=== PATIENT | male | born 1985 | race Caucasian/White ===

== ENCOUNTER 2018-03-29 09:13 | Emergency (ER) | payer SELFPAY ==
[~2018-03-29] VITALS: Ht 177.8 cm; Wt 113.4 kg
[~2018-03-29 09:13] MED LIST: ALBU90OI INH; AMIT10 PO; Amitriptyline H10 MG PO; Cleocin HCl150 MG PO; Crutch1 EACH MISC; Norco 5-325 Ta1 EACH PO; VALS80; VALSARTAN-HCTZ1 EAC2 PO
[2018-03-29] MEDS ORDERED: BUDE10.22 (09:28)
[2018-03-29] MEDS ORDERED: Prednisone20 MG PO (10:58)
[2018-03-29] MEDS ORDERED: Ventolin Sy2 MG/5 ML PO (10:58)
[2018-03-29] MEDS ORDERED: BENZ100A PO (10:58)
== END 2018-03-29 11:11 | disposition home or self-care (01) ==
LOC: ER 09:13
DX: J45.901 Unspecified asthma with (acute) exacerbation (principal); J06.9 Acute upper respiratory infection, unspecified; I10 Essential (primary) hypertension; Z79.51 Long term (current) use of inhaled steroids
CPT/HCPCS: 71046; 94640; 99283-25

== ENCOUNTER 2018-07-15 12:02 | Observation (INO) | payer OTHER ==
[~2018-07-15] VITALS: Ht 177.8 cm; Wt 112.1 kg
[~2018-07-15 12:02] MED LIST changes: +BENZ100A PO; +BUDE10.22; +Prednisone20 MG PO; +Ventolin Sy2 MG/5 ML PO
[2018-07-15 12:52] LABS: Source, Urine Voided
[2018-07-15 12:56] LABS: Hematocrit 52.9 % (37.0-53.0); Hemoglobin 17.7 g/dL (13.5-17.5); Mean Corpuscular HGB 29.9 pg (26.0-34.0); Mean Corpuscular HGB Conc 33.5 g/dL (31.5-36.5); Mean Corpuscular Volume 90 fL (80-100); Mean Platelet Volume 9.9 fL (9.1-12.4); Platelet Count 284 K/mm3 (150-400); RDW Coefficient Variation 12.6 % (11.7-14.2); RDW Standard Deviation 41.6 fL (35.1-46.3); Red Blood Cell Count 5.91 M/mm3 (4.30-5.90); White Blood Cell Count 13.56 K/mm3 (4.00-11.30)
[2018-07-15 13:01] LABS: Appearance, Urine Clear (Clear); Bilirubin, Urine Neg (Neg); Blood, Urine Neg (Neg); Color, Urine Yellow (P-Yellow); Glucose Qualitative, Urine Neg (Neg); Ketones, Urine Neg (Neg); Leukocyte Esterase, Urine 1+ (Neg); Nitrite, Urine Neg (Neg); Protein, Urine 2+ (Neg); Urobilinogen, Urine NORM (Normal)
[2018-07-15 13:09] LABS: International Normalized Ratio 1.01; Prothrombin Time Results 10.4 Sec (9.7-11.5)
[2018-07-15 13:14] LABS: Bacteria Few /hpf; Mucus Heavy ({null, 0-Heavy}); Red Blood Cells, Urine Not Seen /hpf (0-2); Squamous Epithelial Cells Few /hpf (Few)
[2018-07-15 13:16] LABS: Alanine Aminotransfer (ALT/SGP 50 U/L (12-78); Albumin/Globulin Ratio 0.9 (0.8-1.8); Alk Phos 91 U/L (50-136); Anion Gap 10 mmol/L (6-16); Aspartate Aminotrans (AST/SGOT 18 U/L (12-37); Bilirubin, Total 1.2 mg/dL (0.1-1.0); Blood Urea Nitrogen 26 mg/dL (8-24); Bun/Creatinine Ratio 21.8 (12.0-20.0); CO2, Blood 20 mmol/L (21-32); Calcium, Blood 9.2 mg/dL (8.5-10.1); Chloride, Blood 104 mmol/L (98-108); Creatinine, Blood 1.19 mg/dL (0.60-1.20); Globulin, Blood 4.3 g/dL (2.2-4.0); Glomerular Filtration Rate >60 (60-); Glucose, Blood 137 mg/dL (70-99); Potassium, Blood 3.8 mmol/L (3.5-5.5); Sodium, Blood 134 mmol/L (136-145); Total Protein, Blood 8.3 g/dL (6.4-8.2)
[2018-07-15 13:24] LABS: BAND PERCENT MAN 3 % (0-8); BASOPHILS PERCENT MAN 0 % (0-2); EOSINOPHILS PERCENT MAN 0 % (0-6); LYMPHOCYTES ABSOLUTE MAN 0.81 K/mm3 (0.84-5.20); LYMPHOCYTES PERCENT MAN 6 % (21-46); MONOCYTES ABSOLUTE MAN 0.13 K/mm3 (0.16-1.47); MONOCYTES PERCENT MAN 1 % (4-13); NEUTROPHILS ABSOLUTE MAN 12.61 K/mm3 (1.96-9.15); SEG NEUTROPHILS PERCENT MAN 90 % (41-73); TOTAL CELLS COUNTED 100
[2018-07-15] MEDS ORDERED: LISI20 PO (15:44)
[2018-07-15 22:02] LABS: Hematocrit 46.3 % (37.0-53.0); Hemoglobin 15.6 g/dL (13.5-17.5)
--- NOTE | 2018-07-16 05:18 | NUR ---
VSS, AFEBRILE, A/O, SLEPT WELL OVER NOC, NO C/O OF PAIN, N/V/D. INDEPENDENT, 18G R AC, LR @ 125 ML/HR, PT REFUSING SCDS, HAS POSITIVE GUAIC, PT REPORTS DRINKING BEER DAILY, MIGHT CONSIDER CIWA
[2018-07-16 05:26] LABS: BASOPHILS ABSOLUTE AUTO 0.02 K/mm3 (0.00-0.23); BASOPHILS PERCENT AUTO 0 % (0-2); EOSINOPHILS ABSOLUTE AUTO 0.09 K/mm3 (0.00-0.68); EOSINOPHILS PERCENT AUTO 2 % (0-6); Hematocrit 44.1 % (37.0-53.0); Hemoglobin 14.7 g/dL (13.5-17.5); IMMATURE GRAN ABSOLUTE AUTO 0.04 K/mm3 (0.00-0.10); IMMATURE GRAN PERCENT AUTO 1 % (0-1); LYMPHOCYTES ABSOLUTE AUTO 1.09 K/mm3 (0.84-5.20); LYMPHOCYTES PERCENT AUTO 21 % (21-46); MONOCYTES ABSOLUTE AUTO 0.68 K/mm3 (0.16-1.47); MONOCYTES PERCENT AUTO 13 % (4-13); Mean Corpuscular HGB 30.5 pg (26.0-34.0); Mean Corpuscular HGB Conc 33.3 g/dL (31.5-36.5); Mean Corpuscular Volume 92 fL (80-100); Mean Platelet Volume 9.8 fL (9.1-12.4); NEUTROPHILS PERCENT AUTO 64 % (41-73); Platelet Count 192 K/mm3 (150-400); RDW Coefficient Variation 12.8 % (11.7-14.2); Red Blood Cell Count 4.82 M/mm3 (4.30-5.90); White Blood Cell Count 5.32 K/mm3 (4.00-11.30)
[2018-07-16 05:54] LABS: Anion Gap 8 mmol/L (6-16); Blood Urea Nitrogen 19 mg/dL (8-24); Bun/Creatinine Ratio 18.1 (12.0-20.0); CO2, Blood 23 mmol/L (21-32); Calcium, Blood 8.1 mg/dL (8.5-10.1); Chloride, Blood 107 mmol/L (98-108); Creatinine, Blood 1.05 mg/dL (0.60-1.20); Glomerular Filtration Rate >60 (60-); Glucose, Blood 102 mg/dL (70-99); Sodium, Blood 138 mmol/L (136-145)
[2018-07-16] MEDS ORDERED: Protonix40 M1 PO (11:40)
--- NOTE | 2018-07-16 12:36 | NUR ---
DISCHARGE SUMMARY PT DISCHARGED TO HOME. PT LEFT ROOM JUST PRIOR TO THIS MESSAGE WITH STEADY GAIT AND RN ESCORT WITH FAMILY PRESENT. IV DISCONTINUED AND BELONGINGS RETURNED. PT EDUCAGED ABOUT ETOH, HTN, AND NEW MEDICATIONS. PT INSTRUCTED TO FOLLOW UP WITH PCP AND TO TRAIN CONTROL TECHNICIAN NEW MEDICATIONS FROM PHARMACY.
[2018-08-13] MEDS ORDERED: LOSA25 PO (19:46)
[2018-08-13] MEDS ORDERED: Pantoprazole So40 MG PO (19:47)
[2018-08-13] MEDS ORDERED: Excedrin Extra1 EACH PO (19:49)
[2018-08-13] MEDS ORDERED: ALBU90OI INH (21:37)
[2018-08-14] MEDS ORDERED: HYDR1TAB94 PO (14:57)
== END 2018-07-16 12:35 | disposition home or self-care (01) ==
LOC: ER 12:02 → MEDS 12:03 → ER 17:32 → MEDS 17:52 → ENPENDDIS 07-16 11:32 → MEDS 07-16 12:35
PROVIDERS: Physician Assistant; ADMIT Hospitalist
DX: R11.2 Nausea with vomiting, unspecified (principal); I10 Essential (primary) hypertension; R19.5 Other fecal abnormalities; F17.220 Nicotine dependence, chewing tobacco, uncomplicated; J45.909 Unspecified asthma, uncomplicated; Z79.899 Other long term (current) drug therapy; Z51.81 Encounter for therapeutic drug level monitoring
CPT/HCPCS: 36415; 74022; 80048; 80053; 81001; 82272; 85014; 85018; 85025; 85610; 86850; 86900; 86901; 87086; 93005; 93010; 96361; 96374; 96375; 96376; 99285-25; C9113; G0378; J2405; J7030; J7120

== ENCOUNTER 2018-08-13 16:23 | Observation (INO) | payer OTHER ==
[~2018-08-13] VITALS: Ht 177.8 cm; Wt 117.9 kg
[~2018-08-13 16:23] MED LIST changes: +LISI20 PO; +Protonix40 M1 PO
[2018-08-13 17:48] LABS: BASOPHILS ABSOLUTE AUTO 0.04 K/mm3 (0.00-0.23); BASOPHILS PERCENT AUTO 1 % (0-2); EOSINOPHILS ABSOLUTE AUTO 0.28 K/mm3 (0.00-0.68); EOSINOPHILS PERCENT AUTO 3 % (0-6); Hematocrit 46.1 % (37.0-53.0); Hemoglobin 15.4 g/dL (13.5-17.5); IMMATURE GRAN ABSOLUTE AUTO 0.03 K/mm3 (0.00-0.10); IMMATURE GRAN PERCENT AUTO 0 % (0-1); LYMPHOCYTES ABSOLUTE AUTO 2.16 K/mm3 (0.84-5.20); LYMPHOCYTES PERCENT AUTO 24 % (21-46); MONOCYTES ABSOLUTE AUTO 0.68 K/mm3 (0.16-1.47); MONOCYTES PERCENT AUTO 8 % (4-13); Mean Corpuscular HGB 29.7 pg (26.0-34.0); Mean Corpuscular HGB Conc 33.4 g/dL (31.5-36.5); Mean Corpuscular Volume 89 fL (80-100); Mean Platelet Volume 9.6 fL (9.1-12.4); NEUTROPHILS ABSOLUTE AUTO 5.65 K/mm3 (1.96-9.15); NEUTROPHILS PERCENT AUTO 64 % (41-73); Platelet Count 224 K/mm3 (150-400); RDW Standard Deviation 39.8 fL (35.1-46.3); Red Blood Cell Count 5.18 M/mm3 (4.30-5.90); White Blood Cell Count 8.84 K/mm3 (4.00-11.30)
[2018-08-13 18:12] LABS: Alanine Aminotransfer (ALT/SGP 49 U/L (12-78); Albumin/Globulin Ratio 1.1 (0.8-1.8); Alk Phos 89 U/L (50-136); Anion Gap 9 mmol/L (6-16); Aspartate Aminotrans (AST/SGOT 21 U/L (12-37); Bilirubin, Total 0.7 mg/dL (0.1-1.0); Blood Urea Nitrogen 13 mg/dL (8-24); Bun/Creatinine Ratio 13.1 (12.0-20.0); CO2, Blood 27 mmol/L (21-32); Chloride, Blood 102 mmol/L (98-108); Creatinine, Blood 0.99 mg/dL (0.60-1.20); Globulin, Blood 3.6 g/dL (2.2-4.0); Glomerular Filtration Rate >60 (60-); Glucose, Blood 88 mg/dL (70-99); Potassium, Blood 3.5 mmol/L (3.5-5.5); Sodium, Blood 138 mmol/L (136-145); Total Protein, Blood 7.6 g/dL (6.4-8.2)
[2018-08-13] MEDS ORDERED: LOSA25 PO ×2 (19:46)
[2018-08-13] MEDS ORDERED: Pantoprazole So40 MG PO ×2 (19:47)
[2018-08-13] MEDS ORDERED: Excedrin Extra1 EACH PO ×2 (19:49)
[2018-08-13] MEDS ORDERED: ALBU90OI INH ×2 (21:37)
--- NOTE | 2018-08-14 05:21 | NUR ---
SHIFT SUMMARY PT A&O X4 T/O SHIFT. ABD SOFT; ABD PAIN MANGED PER EMAR; BT X4. NO ACUTE CHANGES. PT ADMITTED TO UNIT FROM ER. PT INDEPENDENT IN ROOM. PT DENIES NAUSEA, SOB AND CP. SCD'S TO BLE'S. WCTM UNTIL REPORT TO DAY SHIFT RN.
--- NOTE | 2018-08-14 09:57 | NUR ---
PT TO DAY SURGERY AT THIS TIME
--- NOTE | 2018-08-14 11:09 | NUR ---
Patient was lying in bed and alert when I entered the patient's room. I introduced myself and patient welcomed me. Patient said that he was nervous and yet looking forward to his upcoming surgery. Patient said that he had been waiting for 3 years to have this procedure performed. I listened empathically, explored patient's belief system and prayed for the patient. Patient showed signs of reduced stress. Patient also expressed interest in filling out an advance directive and so I educated patient on the process and importance of having an advance directive on file. I left an advance directive form with the patient. Patient voiced that he understood the steps to take. Patient was then wheeled off to his surgery.
--- NOTE | 2018-08-14 12:58 | NUR ---
POSTOP S/P HERNIA REPAIR. GAUZE IS CDI. PT REPORTS 8/10 PAIN--WILL MEDICATE PER ORDERS. PT DENIES N/V AND GAVIN CLEAR LIQ. POST OP VS IN PROGRESS AND STABLE. WILL CONT TO MONITOR.
--- NOTE | 2018-08-14 13:13 | NUR ---
PT MEDICATED WITH DILAUDID PER ORDERS. PT FAMILY AT BEDSIDE.
[2018-08-14] MEDS ORDERED: HYDR1TAB94 PO ×2 (14:57)
--- NOTE | 2018-08-14 15:23 | NUR ---
DISCHARGE PT EDUCATED ON AND RECEIVED PRINTED DC INSTRUCTIONS. PT VERB AN UNDERSTANDING. HARD RX FOR NORCO GIVEN TO PT. IV DC'D. PT PAIN UNDER CONTROL, VOIDING, AMBULATING, AND GAVIN REG DIET. VSS. PT WAITING FOR TRANSPORTATION TO ARRIVE BEFORE GOING HOME. ALL PERSONAL BELONGINGS BEING GATHERED BY PT.
--- NOTE | 2018-08-14 15:53 | NUR ---
PT ESCORTED OUT BY W/C WITH AND FAMILY AT SIDE.
== END 2018-08-14 15:45 | disposition home or self-care (01) ==
LOC: ER 16:23 → SURS 16:24
PROVIDERS: Emergency Medicine; ADMIT Surgery
PROC: 0WUF0JZ Supplement Abdominal Wall with Synthetic Substitute, Open Approach (ICD-10-PCS; principal; 2018-08-14 10:30)
DX: K42.0 Umbilical hernia with obstruction, without gangrene (principal); I10 Essential (primary) hypertension; E66.9 Obesity, unspecified; K21.9 Gastro-esophageal reflux disease without esophagitis; Z79.899 Other long term (current) drug therapy; Z87.891 Personal history of nicotine dependence; Z68.37 Body mass index [BMI] 37.0-37.9, adult
CPT/HCPCS: 36415; 74177; 80053; 83690; 85025; 96374-59; 96376; 96376-59; 99284-25; C1781; G0378; J0690; J1100; J1170; J1885; J2250; J2405; J3010; J7120; Q9967

== ENCOUNTER 2018-08-16 12:45 | Emergency (ER) | payer OTHER ==
[~2018-08-16] VITALS: Ht 177.8 cm; Wt 116.6 kg
[~2018-08-16 12:45] MED LIST changes: +Excedrin Extra1 EACH PO; +HYDR1TAB94 PO; +LOSA25 PO; +Pantoprazole So40 MG PO
[2018-08-16 13:30] LABS: BASOPHILS ABSOLUTE AUTO 0.04 K/mm3 (0.00-0.23); BASOPHILS PERCENT AUTO 0 % (0-2); EOSINOPHILS ABSOLUTE AUTO 0.18 K/mm3 (0.00-0.68); EOSINOPHILS PERCENT AUTO 2 % (0-6); Hematocrit 47.1 % (37.0-53.0); Hemoglobin 15.4 g/dL (13.5-17.5); IMMATURE GRAN ABSOLUTE AUTO 0.02 K/mm3 (0.00-0.10); IMMATURE GRAN PERCENT AUTO 0 % (0-1); LYMPHOCYTES ABSOLUTE AUTO 2.48 K/mm3 (0.84-5.20); LYMPHOCYTES PERCENT AUTO 25 % (21-46); MONOCYTES ABSOLUTE AUTO 0.73 K/mm3 (0.16-1.47); MONOCYTES PERCENT AUTO 7 % (4-13); Mean Corpuscular HGB 29.7 pg (26.0-34.0); Mean Corpuscular HGB Conc 32.7 g/dL (31.5-36.5); Mean Corpuscular Volume 91 fL (80-100); Mean Platelet Volume 9.8 fL (9.1-12.4); NEUTROPHILS ABSOLUTE AUTO 6.58 K/mm3 (1.96-9.15); NEUTROPHILS PERCENT AUTO 66 % (41-73); Platelet Count 248 K/mm3 (150-400); RDW Coefficient Variation 12.3 % (11.7-14.2); RDW Standard Deviation 41.1 fL (35.1-46.3); Red Blood Cell Count 5.18 M/mm3 (4.30-5.90); White Blood Cell Count 10.03 K/mm3 (4.00-11.30)
[2018-08-16 13:48] LABS: Alanine Aminotransfer (ALT/SGP 45 U/L (12-78); Albumin, Blood 3.9 g/dL (3.4-5.0); Alk Phos 90 U/L (50-136); Anion Gap 5 mmol/L (6-16); Aspartate Aminotrans (AST/SGOT 18 U/L (12-37); Bilirubin, Total 0.4 mg/dL (0.1-1.0); Blood Urea Nitrogen 10 mg/dL (8-24); Bun/Creatinine Ratio 10.9 (12.0-20.0); CO2, Blood 30 mmol/L (21-32); Calcium, Blood 9.3 mg/dL (8.5-10.1); Chloride, Blood 106 mmol/L (98-108); Creatinine, Blood 0.91 mg/dL (0.60-1.20); Globulin, Blood 3.8 g/dL (2.2-4.0); Glomerular Filtration Rate >60 (60-); Glucose, Blood 105 mg/dL (70-99); Potassium, Blood 3.7 mmol/L (3.5-5.5); Sodium, Blood 141 mmol/L (136-145); Total Protein, Blood 7.7 g/dL (6.4-8.2)
[2018-08-16] MEDS ORDERED: Percocet 7.5-31 EACH PO (16:02)
== END 2018-08-16 16:17 | disposition home or self-care (01) ==
LOC: ER 12:45
PROVIDERS: Physician Assistant
DX: K55.069 Acute infarction of intestine, part and extent unspecified (principal); Z79.899 Other long term (current) drug therapy; I10 Essential (primary) hypertension; J45.909 Unspecified asthma, uncomplicated; Z87.891 Personal history of nicotine dependence
CPT/HCPCS: 36415; 74177; 80053; 85025; 96374-59; 99284-25; J3010; Q9967